=== PATIENT | female | born 1960 | race Two or more races ===

== ENCOUNTER 2021-03-23 06:50 | Day surgery (SDC) | payer OTHER ==
[~2021-03-23 06:50] MED LIST: CALTRATE 600+D1 EAC1; CHILDREN'S ASPI81 MG; CRESTOR20 MG; GLIMEPIRIDE2 MG; INVOKAMET 50-11 EACH; NORVASC5 MG; SYNTHROID112 MCG; TRADJENTA5 MG; ZETIA10 MG
== END 2021-03-23 20:15 | disposition home or self-care (01) ==
LOC: CIR.AMB 06:50
PROVIDERS: ATTEND Surgery
DX: D05.12 Intraductal carcinoma in situ of left breast (principal); N62 Hypertrophy of breast; C77.3 Secondary and unspecified malignant neoplasm of axilla and upper limb lymph nodes